=== PATIENT | male | born 1995 | race Caucasian/White ===

== ENCOUNTER 2018-03-16 11:09 | Emergency (ER) | payer OTHER ==
[2018-03-16] MEDS ORDERED: ONDANSETRON 4 MG/2 ML VIAL ONE (11:31)
[2018-03-16] MEDS ORDERED: NS 1,000 ML IV ONE ×3 (11:40→12:22)
[2018-03-16] MEDS ORDERED: ONDANSETRON 4 MG/2 ML VIAL IVP ONE (11:40)
--- NOTE | 2018-03-16 12:11 | EDPHY ---
H & P Stated Complaint: c/o n/v/d starting this am, says concerned about etoh poisoning Time Seen by Provider: 03/16/18 12:11 HPI/ROS: CHIEF COMPLAINT: Nausea, vomiting, diarrhea, abdominal pain HISTORY OF PRESENT ILLNESS: The patient presents to the ED with worsening nausea, vomiting, diarrhea and abdominal pain. The patient's symptoms initially began on Friday morning after a heavy night of drinking. He thought that it was simply alcohol intoxication however given the persistence of the symptoms and the development of diarrhea and ongoing abdominal discomfort he presents to the emergency department for further evaluation. The patient does complain of bilateral flank pain. He denies any hematuria but has had mild dysuria. The patient has no prior history of abdominal surgery. The patient feels lightheaded and dizzy. He is presyncopal with attempted ambulation. REVIEW OF SYSTEMS: A comprehensive 10 point review of systems is otherwise negative aside from elements mentioned in the history of present illness. Source: Patient Exam Limitations: No limitations - Medical/Surgical History Hx Asthma: No Hx Chronic Respiratory Disease: No Hx Diabetes: No Hx Cardiac Disease: No Hx Renal Disease: No Hx Cirrhosis: No Hx Alcoholism: No Hx HIV/AIDS: No Hx Splenectomy or Spleen Trauma: No Other PMH: none - Social History Smoking Status: Never smoked - Physical Exam Exam: General Appearance: Alert, no distress Eyes: Pupils equal and round no pallor or injection ENT, Mouth: Mucous membranes moist Respiratory: There are no retractions, lungs are clear to auscultation Cardiovascular: Tachycardic Gastrointestinal: Diffuse abdominal tenderness, no peritoneal signs. Back: Mild bilateral CVA tenderness Neurological: A&O, normal motor function, normal sensory exam, normal cranial nerves Skin: Warm and dry, no rashes Musculoskeletal: Neck is supple nontender Extremities: symmetrical, full range of motion Psychiatric: Patient is oriented X 3, there is no agitation Constitutional: Initial Vital Signs Temperature (C) 36.7 C 03/16/18 11:15 Heart Rate 113 H 03/16/18 11:15 Respiratory Rate 20 03/16/18 11:15 O2 Sat (%) 99 03/16/18 11:15 O2 Delivery Mode Room Air Allergies/Adverse Reactions: erythromycin base Allergy (Verified 03/16/18 11:18) Home Medications: Medication Instructions Recorded NK [No Known Home Meds] 03/16/18 Medical Decision Making ED Course/Re-evaluation: The patient presents the emergency department with symptoms consistent with a viral gastroenteritis. He has had vomiting, diarrhea and generalized abdominal pain for the past day. The patient had an IV established. He received 3 L of normal saline, IV morphine and Toradol. Laboratory testing demonstrates no evidence of a significant metabolic derangement, pancreatitis, hepatitis or critical anemia. Patient's urinalysis demonstrates no evidence of pyuria or hematuria. Patient had serial examinations in the ED over a 3 hr period. I re-evaluated the patient at 2: 3:00 p.m. And he is currently feeling better. The patient is tolerating p.o. Fluids. Patient would like to be discharged home at this point time. He will be given a prescription for Zofran. Differential Diagnosis: Differential diagnosis considered includes gastroenteritis, pancreatitis, alcoholic gastritis, nephrolithiasis, pyelonephritis - Data Points Laboratory Results: Laboratory Results 03/16/18 11:47 03/16/18 11:47 03/16/18 03/16/18 03/16/18 13:00 11:47 11:47 WBC RBC Hgb Hct MCV MCH MCHC RDW Plt Count MPV Neut % (Auto) Lymph % (Auto) [place] % (Auto) Eos % (Auto) Baso % (Auto) Nucleat RBC Rel Count Absolute Neuts (auto) Absolute Lymphs (auto) Absolute Monos (auto) Absolute Eos (auto) Absolute Basos (auto) Absolute Nucleated RBC Immature Gran % Immature Gran # RBC/WBC/PLT Morphology Platelet Estimate Sodium 140 mEq/L mEq/L (135-145) Potassium 5.0 mEq/L mEq/L (3.3-5.0) Chloride 109 mEq/L mEq/L (97-110) Carbon Dioxide 21 mEq/l L mEq/l (22-31) Anion Gap 10 mEq/L mEq/L (6-14) BUN 23 mg/dL mg/dL (7-23) Creatinine 1.2 mg/dL mg/dL (0.7-1.3) Estimated GFR > 60 Glucose 105 mg/dL H mg/dL (70-100) Calcium 10.3 mg/dL mg/dL (8.5-10.4) Total Bilirubin 1.6 mg/dL H mg/dL (0.1-1.4) Conjugated Bilirubin 0.3 mg/dL mg/dL (0.0-0.5) Unconjugated Bilirubin 1.3 mg/dL H mg/dL (0.0-1.1) AST 40 IU/L IU/L (17-59) ALT 52 IU/L IU/L (21-72) Alkaline Phosphatase 85 IU/L IU/L (38-126) Total Protein 7.1 g/dL g/dL (6.3-8.2) Albumin 4.7 g/dL g/dL (3.5-5.0) Lipase 62 IU/L IU/L (23-300) Urine Color YELLOW Urine Appearance CLEAR Urine pH 9.0 H (5.0-7.5) Ur Specific [place] 1.025 (1.002-1.030) Urine Protein 2+ H (NEGATIVE) Urine Ketones TRACE H (NEGATIVE) Urine Blood NEGATIVE (NEGATIVE) Urine Nitrate NEGATIVE (NEGATIVE) Urine Bilirubin NEGATIVE (NEGATIVE) Urine Urobilinogen NEGATIVE EU EU (0.2-1.0) Ur Leukocyte Esterase NEGATIVE (NEGATIVE) Urine RBC 1-3 /hpf /hpf (0-3) Urine WBC 1-3 /hpf /hpf (0-3) Ur Epithelial Cells NONE SEEN /lpf /lpf (NONE-1+) Urine Mucus TRACE /lpf /lpf (NONE-1+) Urine Glucose NEGATIVE (NEGATIVE) 03/16/18 11:47 WBC 9.99 10^3/uL H 10^3/uL (3.80-9.50) RBC 6.03 10^6/uL 10^6/uL (4.40-6.38) Hgb 18.3 g/dL H g/dL (13.7-17.5) Hct 51.8 % H % (40.0-51.0) MCV 85.9 fL fL (81.5-99.8) MCH 30.3 pg pg (27.9-34.1) MCHC 35.3 g/dL g/dL (32.4-36.7) RDW 12.0 % % (11.5-15.2) Plt Count 293 10^3/uL 10^3/uL (150-400) MPV 8.5 fL L fL (8.7-11.7) Neut % (Auto) 88.8 % H % (39.3-74.2) Lymph % (Auto) 3.8 % L % (15.0-45.0) [place] % (Auto) 6.5 % % (4.5-13.0) Eos % (Auto) 0.2 % L % (0.6-7.6) Baso % (Auto) 0.3 % % (0.3-1.7) Nucleat RBC Rel Count 0.0 % % (0.0-0.2) Absolute Neuts (auto) 8.87 10^3/uL H 10^3/uL (1.70-6.50) Absolute Lymphs (auto) 0.38 10^3/uL L 10^3/uL (1.00-3.00) Absolute Monos (auto) 0.65 10^3/uL 10^3/uL (0.30-0.80) Absolute Eos (auto) 0.02 10^3/uL L 10^3/uL (0.03-0.40) Absolute Basos (auto) 0.03 10^3/uL 10^3/uL (0.02-0.10) Absolute Nucleated RBC 0.00 10^3/uL 10^3/uL (0-0.01) Immature Gran % 0.4 % % (0.0-1.1) Immature Gran # 0.04 10^3/uL 10^3/uL (0.00-0.10) RBC/WBC/PLT Morphology TNP Platelet Estimate TNP Sodium Potassium Chloride Carbon Dioxide Anion Gap BUN Creatinine Estimated GFR Glucose Calcium Total Bilirubin Conjugated Bilirubin Unconjugated Bilirubin AST ALT Alkaline Phosphatase Total Protein Albumin Lipase Urine Color Urine Appearance Urine pH Ur Specific [place] Urine Protein Urine Ketones Urine Blood Urine Nitrate Urine Bilirubin Urine Urobilinogen Ur Leukocyte Esterase Urine RBC Urine WBC Ur Epithelial Cells Urine Mucus Urine Glucose Medications Given: Discontinued Medications Sodium Chloride (Ns) 1,000 mls @ 0 mls/hr IV ONCE ONE; Wide Open PRN Reason: Protocol Stop: 03/16/18 11:41 Last Admin: 03/16/18 11:41 Dose: 1,000 mls Sodium Chloride (Ns) 1,000 mls @ 0 mls/hr IV ONCE ONE PRN Reason: Wide Open Stop: 03/16/18 12:23 Last Admin: 03/16/18 13:00 Dose: 1,000 mls Sodium Chloride (Ns) 1,000 mls @ 0 mls/hr IV ONCE ONE PRN Reason: Wide Open Stop: 03/16/18 12:23 Last Admin: 03/16/18 12:22 Dose: 1,000 mls Ketorolac Tromethamine (Toradol) 15 mg IVP EDNOW ONE Stop: 03/16/18 13:41 Last Admin: 03/16/18 14:00 Dose: 15 mg Ondansetron HCl (Zofran) 4 mg IVP EDNOW ONE Stop: 03/16/18 11:41 Last Admin: 03/16/18 11:41 Dose: 4 mg Departure - Departure Disposition: [facility] Clinical Impression: Abdominal pain Qualifiers: Abdominal location: generalized Qualified Code(s): R10.84 - Generalized abdominal pain Condition: Good Instructions: Acute Abdominal Pain (ED) Additional Instructions: 1. Sometimes we are unable to diagnose an obvious cause of abdominal pain in the Emergency Department. Based upon our evaluation today, I believe your symptoms are secondary to a viral intestinal infection. Because more serious conditions can be difficult to diagnose early in the course of their presentation, we ask that you return to the Emergency Department in 8-12 hours for a recheck if you are still having pain. This is necessary to exclude the development of a more serious condition such as appendicitis or other intra- abdominal emergency. In the event your pain markedly increases before that time or you develop intractable vomiting or fever return to the Emergency Department immediately. 2. Zofran as needed for nausea. 3. Take Ibuprofen or Motrin 600 mg by mouth three times a day.
[2018-03-16 12:17] LABS: PLATELET COUNT 293 10^3/uL (150-400)
[2018-03-16] MEDS ORDERED: KETOROLAC 15 MG/1 ML SDV IVP ONE (13:40)
[2018-03-16 14:33] VITALS: BP 119/72
== END 2018-03-16 14:31 ==
DX: R10.84 Generalized abdominal pain (principal); E86.9 Volume depletion, unspecified; R19.7 Diarrhea, unspecified
CPT/HCPCS: 96374; J1885; J2405